=== PATIENT | female | born 1985 | race Caucasian/White ===

== ENCOUNTER 2017-07-01 17:32 | Emergency (ER) ==
[2017-07-01 17:42] VITALS: BP 138/82; TEMP 98.2; BMI 37.1
[2017-07-01] MEDS ORDERED: LIDOCAINE HCL 1% SDV SUBCUT STA (17:51)
[2017-07-01] MEDS ORDERED: DILAUDID 1 MG/ML SYRINGE ONE (18:06)
[2017-07-01] MEDS ORDERED: EMLA CREAM TP ONE (18:25)
--- NOTE | 2017-07-01 18:36 | ED.PDOC ---
General ED Provider: Dr. AMBROSIO LANCASTER Chief Complaint: Rectal Pain Stated Complaint: rectal pain Time Seen by Physician: 17:34 (external hemorroid very tender ) Mode of Arrival: Walk-In Information Source: Patient Exam Limitations: No limitations Referred to ED by: Other (36 weeks ) Nursing and Triage Documentation Reviewed and Agree: Yes (1 day in duration) GI Complaint Exam - Rectal Complaint/Exam Patient Complains of: Reports: Rectal pain Onset/Duration: 1 day Symptoms Are: Still present Timing: Constant Episodes Lasting: Hours Initial Severity: Severe Current Severity: Severe Location: Reports: Rectal Character: Reports: Burning, Pressure Aggravating: Reports: Bowel movement, Sitting, Walking, Exertion Alleviating: Reports: None Associated Signs and Symptoms: Denies: Rectal bleeding, Blood-streaked stool, Black tarry stool, Bright red blood w/ stool (protruding 1 cm hemorrhoid ), Blood without stool Related History: Reports: Hemorrhoids Related Surgical History: Reports: None Rectal Exam: Present: External hemorrhoids, Tenderness Differential Diagnoses: Hemorrhoids Review of Systems - Review Of Systems Constitutional: Reports: No symptoms Eyes: Reports: No symptoms Ears, Nose, Mouth, Throat: Reports: No symptoms Respiratory: Reports: No symptoms Cardiac: Reports: No symptoms GI: Reports: Other (rectal pain external hemorroid ) : Reports: No symptoms Musculoskeletal: Reports: No symptoms Skin: Reports: No symptoms Neurological: Reports: No symptoms Endocrine: Reports: No symptoms Hematologic/Lymphatic: Reports: No symptoms All Other Systems: Reviewed and Negative Past Medical History - Past Medical History Previously Healthy: Yes Endocrine: Reports: None Cardiovascular: Reports: None Respiratory: Reports: None Hematological: Reports: None Gastrointestinal: Reports: None Genitourinary: Reports: None Neuro/Psych: Reports: None Musculoskeletal: Reports: None Cancer: Reports: None Last Menstrual Period: 36 weeks now - Surgical History General Surgical History: Reports: None - Family History Family History: Reports: None - Social History Smoking Status: Current every day smoker, Light tobacco smoker Hx Substance Use: No Alcohol Screening: None Physical Exam - Physical Exam Appearance: Well-appearing (external hemorrhoid noted please see photes before anfter procedure this hemorrhois was very inflammed and thrombosed ), No pain distress, Well-nourished Eyes: JOSE CRUZ, EOMI, Conjunctiva clear ENT: Ears normal, Nose normal, Oropharynx normal Respiratory: Airway patent, Breath sounds clear, Breath sounds equal, Respirations nonlabored Cardiovascular: RRR, Pulses normal, No rub, No murmur GI/: Soft, Nontender, No masses, Bowel sounds normal, No Organomegaly Musculoskeletal: Normal strength, ROM intact, No edema, No calf tenderness Skin: Warm, Dry, Normal color Neurological: Sensation intact, Motor intact, Reflexes intact, Cranial nerves intact, Alert, Oriented Psychiatric: Affect appropriate, Mood appropriate Procedures - Incision and Drainage Site: rectal . Instrument Used: 10 Blade I & D Procedure: Yes: Betadine Prep, Sterile dressing applied Lidocaine Used: Yes (2ml plain) Type of Drainage: Present: Blood (an inflammed thrombosed external hemoorhoid was noted this hemorrhoid was isoltaed and removed by carefull excision the margins of the wound was suture with 3 prolene suture 2 sutures placed photos before and after submitted . pt's was present at all times along with maureen) Critical Care Note - Critical Care Note Total Time (mins): 0 Course - Course Orders, Labs, Meds: Orders Category Date Time Status Hydromorphone HCl [Dilaudid 1 mg/ml Syringe] MEDS 07/01/17 18:06 Discontinued 1 mg .ROUTE .STK-MED ONE Lidocaine HCl/Pf [Lidocaine HCl 1% Sdv] MEDS 07/01/17 17:51 Stat 5 ml SUBCUT ONCE STA Lidocaine/Prilocaine [Emla Cream] MEDS 07/01/17 18:25 Discontinued 2 applic TP .STK-MED ONE Medications Discontinued Medications Generic Name Dose Route Start Last Admin Trade Name Freq PRN Reason Stop Dose Admin Lidocaine HCl 5 ml 07/01/17 17:51 Lidocaine Hcl 1% Sdv SUBCUT 07/01/17 17:52 ONCE STA Vital Signs: Temp Pulse Resp BP Pulse Ox 07/01/17 17:33 98.2 F 108 H 20 138/82 98 Departure - Departure Time of Disposition: 18:40 Disposition: HOME SELF-CARE Discharge Problem: Rectal pain, External hemorrhoid, thrombosed Instructions: Hemorrhoids (ED), Wound Healing and Your Diet (ED), Acute Wound Care (ED) Condition: Good Pt referred to PMD for follow-up: Yes Additional Instructions: Please call your Family Physician as soon as possible to schedule a follow-up appointment. Allergies/Adverse Reactions: Allergies No Known Allergies Allergy (Unverified 07/01/17 17:41) Home Medications: Ambulatory Orders Pnv No.122/Iron/Folic Acid [ Multi Tablet] 1 each PO DAILY 07/01/17 Disposition Discussed With: Patient
[2017-07-01] MEDS ORDERED: NORCO 10-325 PO STA (18:43)
== END 2017-07-01 19:10 | disposition home or self-care (01) ==
LOC: ED 17:32
DX: K64.5 Perianal venous thrombosis (principal); K62.89 Other specified diseases of anus and rectum; Z33.1 Pregnant state, incidental; F17.210 Nicotine dependence, cigarettes, uncomplicated
CPT/HCPCS: 99284

== ENCOUNTER 2017-07-06 22:50 | Emergency (ER) ==
[2017-07-06 22:51] VITALS: BMI 37.1
[2017-07-06 23:00] VITALS: BP 138/91; TEMP 98.9
[2017-07-06] MEDS: ANUCORT-HC RC STA (23:49)
[2017-07-06] MEDS: EMLA CREAM TP STA (23:49)
--- NOTE | 2017-07-06 23:53 | ED.PDOC ---
General ED Provider: Dr. IVONNE HERMAN Chief Complaint: Rectal Pain Stated Complaint: Pateint is 37 weeks who comes to the ER with hemorroidal pain. She was seen last week in this ER had some of her hemorroids removed and sutures placed. She started having severe pain again yesterday worse with bowel movement or sitting. Tried to follow up with OBGYN but was told to return to this ER where she had it done. Time Seen by Physician: 23:00 Mode of Arrival: Walk-In Information Source: Patient, Family Exam Limitations: No limitations Nursing and Triage Documentation Reviewed and Agree: Yes GI Complaint Exam - Rectal Complaint/Exam Patient Complains of: Reports: Rectal pain, Rectal bleeding Onset/Duration: 1 week Symptoms Are: Still present Timing: Constant Initial Severity: Severe Current Severity: Severe Location: Reports: Rectal Character: Reports: Dull Aggravating: Reports: None Alleviating: Reports: None Associated Signs and Symptoms: Reports: Rectal bleeding. Denies: Blood- streaked stool, Black tarry stool, Bright red blood w/ stool, Blood without stool Related History: Reports: Hemorrhoids Rectal Exam: Present: External hemorrhoids (at 12 o'clock position. Sutrues intact at the 7 and 9 o'clock position) Review of Systems - Review Of Systems Constitutional: Reports: No symptoms Eyes: Reports: No symptoms Ears, Nose, Mouth, Throat: Reports: No symptoms Respiratory: Reports: No symptoms Cardiac: Reports: No symptoms : Reports: No symptoms Musculoskeletal: Reports: No symptoms Skin: Reports: No symptoms Neurological: Reports: Anxiety Endocrine: Reports: No symptoms Hematologic/Lymphatic: Reports: No symptoms All Other Systems: Reviewed and Negative Past Medical History - Past Medical History Previously Healthy: Yes Endocrine: Reports: None Cardiovascular: Reports: None Respiratory: Reports: None Hematological: Reports: None Gastrointestinal: Reports: None Genitourinary: Reports: None Neuro/Psych: Reports: None Musculoskeletal: Reports: None Cancer: Reports: None Last Menstrual Period: 10/31/16 - Surgical History General Surgical History: Reports: Other (Hemorroidectomy last week ) - Family History Family History: Reports: None - Social History Smoking Status: Current every day smoker, Light tobacco smoker Hx Substance Use: No Alcohol Screening: None - Immunizations Tetanus Shot up to Date: Yes Physical Exam - Physical Exam Appearance: Well-nourished, Obese Pain Distress: Severe Eyes: JOSE CRUZ, EOMI, Conjunctiva clear Neck: Supple Respiratory: Airway patent, Breath sounds clear, Breath sounds equal, Respirations nonlabored Cardiovascular: Pulses normal, No rub, No murmur, Tachycardia GI/: Soft (Gravid) Musculoskeletal: Normal strength, ROM intact, No edema, No calf tenderness Skin: Warm, Dry, Normal color Neurological: Sensation intact, Motor intact, Alert, Oriented Psychiatric: Anxious Critical Care Note - Critical Care Note Total Time (mins): 0 Course - Course Orders, Labs, Meds: Orders Category Date Time Status Hydrocortisone Acetate [Anucort-Hc] MEDS 07/06/17 23:43 Discontinued 1 supp RC ONCE STA Lidocaine/Prilocaine [Emla Cream] MEDS 07/06/17 23:45 Discontinued 1 applic TP ONCE STA Medications Discontinued Medications Generic Name Dose Route Start Last Admin Trade Name Freq PRN Reason Stop Dose Admin Hydrocortisone Acetate 1 supp 07/06/17 23:43 Anucort-Hc RC 07/06/17 23:44 ONCE STA Lidocaine/Prilocaine 1 applic 07/06/17 23:45 Emla Cream TP 07/06/17 23:46 ONCE STA Vital Signs: Temp Pulse Resp BP Pulse Ox 07/06/17 22:51 98.9 F 123 H 20 138/91 H 98 Departure - Departure Time of Disposition: 23:57 Disposition: HOME SELF-CARE Discharge Problem: External hemorrhoid, thrombosed Instructions: Hemorrhoids (ED) Condition: Fair Pt referred to PMD for follow-up: Yes Additional Instructions: Use Anusol Three to 4 times a day Follow up with OBGYN in 1-2 days Prescriptions: Hydrocortisone Acetate [Anusol-Hc] 25 mg RC QID PRN #20 supp.rect PRN Reason: Hemorroids Oxycodone-Acetaminophen 5-325 [Percocet 5-325] 1 tab PO Q4H #20 tablet Allergies/Adverse Reactions: Allergies No Known Allergies Allergy (Verified 07/06/17 22:59) Home Medications: Ambulatory Orders Pnv No.122/Iron/Folic Acid [ Multi Tablet] 1 each PO DAILY 07/01/17 Hydrocortisone Acetate [Anusol-Hc] 25 mg RC QID PRN #20 supp.rect 07/07/17 Oxycodone-Acetaminophen 5-325 [Percocet 5-325] 1 tab PO Q4H #20 tablet 07/07/17 Disposition Discussed With: Patient, Family
[2017-07-07] MEDS ORDERED: ANUCORT-HC RC ONE (06:56)
[2017-07-07] MEDS ORDERED: EMLA CREAM TP ONE (06:56)
== END 2017-07-07 00:05 | disposition home or self-care (01) ==
LOC: ED 22:50
DX: K64.5 Perianal venous thrombosis (principal); Z33.1 Pregnant state, incidental; Z98.890 Other specified postprocedural states; F17.210 Nicotine dependence, cigarettes, uncomplicated
CPT/HCPCS: 99283

== ENCOUNTER 2018-11-18 03:53 | Emergency (ER) | payer MEDICAID, OTHER ==
[2018-11-18 03:57] VITALS: BP 144/84; TEMP 98; BMI 31.1
--- NOTE | 2018-11-18 04:15 | ED.PDOC ---
General ED Provider: Dr. IMAN HERNANDEZ-ER Chief Complaint: Tooth Problem Stated Complaint: i have a bad tooth Time Seen by Physician: 04:00 Mode of Arrival: Walk-In Information Source: Patient Exam Limitations: No limitations Nursing and Triage Documentation Reviewed and Agree: Yes Does patient meet sepsis criteria?: No System Inflammatory Response Syndrome: Not Applicable Sepsis Protocol: For patient's 13 years and over: Temp is 96.8 and below OR 101 and greater Pulse >90 BPM Resp >20/minute Acutely Altered Mental Status Are patient's symptoms suggestive of a new infection, such as: -Pneumonia -Skin, Soft Tissue -Endocarditis -UTI -Bone, Joint Infection -Implantable Device -Acute Abdominal Infection -Wound Infection -Meningitis -Blood Stream Catheter Infection -Unknown EENT Complaint Exam - Dental/Oral Complaint/Exam Mechanism of Injury: No known trauma Onset/Duration: 2 days Symptoms Are: Still present Timing: Constant Initial Severity: Mild Current Severity: Moderate Character: Reports: Dull, Aching, Throbbing Aggravating: Reports: Heat, Cold, Chewing Associated Signs and Symptoms: Reports: Swelling Cardiac Risk Factors: Reports: None Dental/Oral Surgical History: Reports: None Tooth Findings: Present: Percussion tenderness, Gross decay, Gross caries Cervical Lymphadenopathy Present: No Facial Swelling Present: No Bleeding Present: No Septal Hematoma: No Foreign Body Present: No Dysphagia Present: No Drooling Present: No Asymmetrical Tonsillar Swelling Present: No Uvula Midline: Yes Caty-tonsillar Fluctuence: No Trismus Present: No Palatal Petechiae Present: No Scarlatinaform Rash Present: No Differential Diagnoses: Dental Abcess, Dental Caries, Odontogenic Pain Review of Systems - Review Of Systems Constitutional: Reports: No symptoms Eyes: Reports: No symptoms Ears, Nose, Mouth, Throat: Reports: Mouth pain Respiratory: Reports: No symptoms Cardiac: Reports: No symptoms GI: Reports: No symptoms : Reports: No symptoms Musculoskeletal: Reports: No symptoms Skin: Reports: No symptoms Neurological: Reports: No symptoms Endocrine: Reports: No symptoms Hematologic/Lymphatic: Reports: No symptoms All Other Systems: Reviewed and Negative Past Medical History - Past Medical History Previously Healthy: Yes Endocrine: Reports: None Cardiovascular: Reports: None Respiratory: Reports: None Hematological: Reports: None Gastrointestinal: Reports: None Genitourinary: Reports: None Neuro/Psych: Reports: None Musculoskeletal: Reports: None Cancer: Reports: None Last Menstrual Period: current - Surgical History General Surgical History: Reports: Other (Hemorroidectomy last week ) - Family History Family History: Reports: None - Social History Smoking Status: Current every day smoker, Light tobacco smoker Hx Substance Use: No Alcohol Screening: None - Immunizations Tetanus Shot up to Date: Yes Physical Exam - Physical Exam Appearance: Well-appearing, No pain distress, Well-nourished Pain Distress: Moderate Eyes: JOSE CRUZ, EOMI, Conjunctiva clear ENT: Ears normal, Nose normal, Oropharynx normal (exam does confirm left lower incisor tender to palpation) Neck: Supple Respiratory: Airway patent, Breath sounds clear, Breath sounds equal, Respirations nonlabored Cardiovascular: RRR, Pulses normal, No rub, No murmur GI/: Soft, Nontender, No masses, Bowel sounds normal, No Organomegaly Musculoskeletal: Normal strength, ROM intact, No edema, No calf tenderness Skin: Warm, Dry, Normal color Neurological: Sensation intact, Motor intact, Reflexes intact, Cranial nerves intact, Alert, Oriented Psychiatric: Affect appropriate, Mood appropriate Critical Care Note - Critical Care Note Total Time (mins): 0 Course - Course Vital Signs: Temp Pulse Resp BP Pulse Ox 11/18/18 03:53 98 F 88 18 144/84 H 99 Departure - Departure Time of Disposition: 04:15 Disposition: HOME SELF-CARE Discharge Problem: Toothache Instructions: Dental Abscess (ED) Condition: Good Pt referred to PMD for follow-up: Yes IPMP verified?: No Additional Instructions: do not breastfeed on these meds---"pump and dump"----pen v k 500mg bid x 7 days- --norco 7.5 q 4hrs prn pain #12---see dentist varinder Allergies/Adverse Reactions: Allergies No Known Allergies Allergy (Verified 11/18/18 03:57) Home Medications: Ambulatory Orders 1 [No Reported Medications] 11/18/18 Disposition Discussed With: Patient
== END 2018-11-18 04:30 | disposition home or self-care (01) ==
LOC: ED 03:53
DX: K08.89 Other specified disorders of teeth and supporting structures (principal); K02.7 Dental root caries; F17.210 Nicotine dependence, cigarettes, uncomplicated
CPT/HCPCS: 99282

== ENCOUNTER 2018-11-25 21:45 | Emergency (ER) ==
--- NOTE | 2018-11-25 21:52 | ED.PDOC ---
General ED Provider: Dr. ABDULKADIR LEVIN Chief Complaint: Tooth Problem Stated Complaint: dental pain in lower left bank Time Seen by Physician: 22:10 Mode of Arrival: Walk-In Information Source: Patient Exam Limitations: No limitations Nursing and Triage Documentation Reviewed and Agree: Yes Does patient meet sepsis criteria?: No System Inflammatory Response Syndrome: Not Applicable Sepsis Protocol: For patient's 13 years and over: Temp is 96.8 and below OR 101 and greater Pulse >90 BPM Resp >20/minute Acutely Altered Mental Status Are patient's symptoms suggestive of a new infection, such as: -Pneumonia -Skin, Soft Tissue -Endocarditis -UTI -Bone, Joint Infection -Implantable Device -Acute Abdominal Infection -Wound Infection -Meningitis -Blood Stream Catheter Infection -Unknown EENT Complaint Exam - Dental/Oral Complaint/Exam Mechanism of Injury: No known trauma Onset/Duration: few days Symptoms Are: Still present Timing: Intermittent Initial Severity: Moderate Current Severity: Moderate Character: Reports: Aching Aggravating: Reports: Chewing Alleviating: Reports: None Dental/Oral Surgical History: Reports: None Tooth Findings: Present: Percussion tenderness, Cellulitis Cervical Lymphadenopathy Present: Yes Facial Swelling Present: No Bleeding Present: No Septal Hematoma: No Dysphagia Present: No Drooling Present: No Uvula Midline: Yes Caty-tonsillar Fluctuence: No Trismus Present: No Palatal Petechiae Present: No Scarlatinaform Rash Present: No Differential Diagnoses: Dental Abcess, Dental Caries, Gingivitis Review of Systems - Review Of Systems Constitutional: Reports: Other Eyes: Reports: No symptoms, Glasses Respiratory: Reports: No symptoms Cardiac: Reports: No symptoms GI: Reports: No symptoms : Reports: No symptoms Musculoskeletal: Reports: No symptoms Skin: Reports: No symptoms Neurological: Reports: No symptoms Endocrine: Reports: No symptoms Hematologic/Lymphatic: Reports: No symptoms All Other Systems: Reviewed and Negative Past Medical History - Past Medical History Previously Healthy: Yes Endocrine: Reports: None Cardiovascular: Reports: None Respiratory: Reports: None Hematological: Reports: None Gastrointestinal: Reports: None Genitourinary: Reports: None Neuro/Psych: Reports: None Musculoskeletal: Reports: None Cancer: Reports: None - Surgical History General Surgical History: Reports: Other (Hemorroidectomy last week ) - Family History Family History: Reports: None - Social History Smoking Status: Current every day smoker, Light tobacco smoker Hx Substance Use: No Alcohol Screening: None Physical Exam - Physical Exam Appearance: Well-appearing Ill-appearing: Mild Pain Distress: Moderate Eyes: JOSE CRUZ ENT: Ears normal Neck: Supple Respiratory: Airway patent Cardiovascular: RRR GI/: Tender Musculoskeletal: Normal strength Neurological: Sensation intact Psychiatric: Affect appropriate Critical Care Note - Critical Care Note Total Time (mins): 0 Departure - Departure Time of Disposition: 01:00 Disposition: HOME SELF-CARE Discharge Problem: Pain, dental Instructions: Toothache (ED) Condition: Good Pt referred to PMD for follow-up: Yes (referred to appropriate dental clinic for a ssoner apoinmtment at am.) IPMP verified?: No Additional Instructions: Clindamycin 300 mgfollow with [facility] number given at am for sooner dental visit, Take meds as orescribed including a break in breast feed to take antibiotic and pain meds until seen.Clindamycin Rx 300 mg tab qid x 7 days.NO BREAST FEED.For distressing pain take NORCO 10/325 tab- one tab every 4-6 hours for 2 days total 8 tab. Allergies/Adverse Reactions: Allergies No Known Allergies Allergy (Verified 11/25/18 21:57) Home Medications: Ambulatory Orders 1 [No Reported Medications] 11/18/18 Disposition Discussed With: Patient
[2018-11-25 21:57] VITALS: BP 125/82; TEMP 99.3; BMI 33.7
[2018-11-25] MEDS ORDERED: TYLENOL LIQUID 650 MG/20.3 ML PO STA (22:27)
[2018-11-25] MEDS ORDERED: PENICILLIN VK TAB PO STA (22:29)
== END 2018-11-25 22:45 | disposition home or self-care (01) ==
LOC: ED 21:45
DX: K08.89 Other specified disorders of teeth and supporting structures (principal); F17.210 Nicotine dependence, cigarettes, uncomplicated
CPT/HCPCS: 99282

== ENCOUNTER 2018-12-23 00:16 | Emergency (ER) ==
[2018-12-23 00:25] VITALS: BP 127/81; TEMP 99.5; BMI 33.3
--- NOTE | 2018-12-23 00:37 | ED.PDOC ---
General ED Provider: Dr. IVONNE HERMAN Chief Complaint: Tooth Problem Stated Complaint: Patient is a 33 year old female who comes to the ER with left lower molar tooth ache. States she has an Apt with Dr Shannon 01/04/19 has been on tylenol and motrin without much relief. Time Seen by Physician: 00:35 Mode of Arrival: Walk-In Information Source: Patient Exam Limitations: No limitations Nursing and Triage Documentation Reviewed and Agree: Yes Does patient meet sepsis criteria?: No System Inflammatory Response Syndrome: Not Applicable Sepsis Protocol: For patient's 13 years and over: Temp is 96.8 and below OR 101 and greater Pulse >90 BPM Resp >20/minute Acutely Altered Mental Status Are patient's symptoms suggestive of a new infection, such as: -Pneumonia -Skin, Soft Tissue -Endocarditis -UTI -Bone, Joint Infection -Implantable Device -Acute Abdominal Infection -Wound Infection -Meningitis -Blood Stream Catheter Infection -Unknown EENT Complaint Exam - Dental/Oral Complaint/Exam Mechanism of Injury: No known trauma Onset/Duration: 1 day Symptoms Are: Still present Timing: Constant Initial Severity: Moderate Current Severity: Severe Location: Left lower molar Character: Reports: Aching, Throbbing Aggravating: Reports: Heat, Cold, Chewing Associated Signs and Symptoms: Reports: Swelling, Discharge Related History: Reports: Similar episode Cardiac Risk Factors: Reports: None Dental/Oral Surgical History: Reports: None Tooth Findings: Present: Gross decay, Dental fracture, Abcess Cervical Lymphadenopathy Present: No Facial Swelling Present: No Bleeding Present: No Oropharynx Findings: Absent: Clots, Active bleeding Septal Hematoma: No Foreign Body Present: No Dysphagia Present: No Drooling Present: No Asymmetrical Tonsillar Swelling Present: No Uvula Midline: No Caty-tonsillar Fluctuence: No Trismus Present: No Palatal Petechiae Present: No Scarlatinaform Rash Present: No Teeth Picture: 1 - pain and tenderness to percussion Differential Diagnoses: Dental Abcess, Dental Caries Review of Systems - Review Of Systems Constitutional: Reports: No symptoms Eyes: Reports: No symptoms Ears, Nose, Mouth, Throat: Reports: Mouth pain Respiratory: Reports: No symptoms Cardiac: Reports: No symptoms GI: Reports: No symptoms : Reports: No symptoms Musculoskeletal: Reports: No symptoms Skin: Reports: No symptoms Neurological: Reports: No symptoms Endocrine: Reports: No symptoms Hematologic/Lymphatic: Reports: No symptoms All Other Systems: Reviewed and Negative Past Medical History - Past Medical History Previously Healthy: Yes Endocrine: Reports: None Cardiovascular: Reports: None Respiratory: Reports: None Hematological: Reports: None Gastrointestinal: Reports: None Genitourinary: Reports: None Neuro/Psych: Reports: None Musculoskeletal: Reports: None Cancer: Reports: None Last Menstrual Period: PRESENTLY - Surgical History General Surgical History: Reports: Other (Hemorroidectomy last week ) - Family History Family History: Reports: None - Social History Smoking Status: Current every day smoker, Heavy tobacco smoker Hx Substance Use: No Alcohol Screening: None - Immunizations Tetanus Shot up to Date: Yes Physical Exam - Physical Exam Appearance: Ill-appearing, Obese Pain Distress: Severe Eyes: JOSE CRUZ ENT: Ears normal, Nose normal, Oropharynx normal Neck: Supple (Enlarged lyphm node) Respiratory: Airway patent, Breath sounds clear, Breath sounds equal, Respirations nonlabored Musculoskeletal: Normal strength, ROM intact, No edema, No calf tenderness Skin: Warm, Dry, Normal color Neurological: Alert, Oriented Psychiatric: Anxious Critical Care Note - Critical Care Note Total Time (mins): 0 Course - Course Vital Signs: Temp Pulse Resp BP Pulse Ox 12/23/18 00:18 99.5 F 92 H 18 127/81 98 Departure - Departure Time of Disposition: 00:51 Disposition: HOME SELF-CARE Discharge Problem: Dental caries Instructions: Dental Abscess (ED), Toothache (ED) Condition: Fair Pt referred to PMD for follow-up: Yes IPMP verified?: No Additional Instructions: take antibiotics as prescribed Follow up with PCP in 3 days Prescriptions: Hydrocodone Bit/Acetaminophen [Lueders 5-325] 1 each PO Q6HR PRN #15 tablet PRN Reason: severe pain Amoxicillin [Amoxil] 500 mg PO TID #30 capsule Ibuprofen [Motrin] 600 mg PO Q6H PRN #30 tablet PRN Reason: Analgesia Allergies/Adverse Reactions: Allergies No Known Allergies Allergy (Verified 12/23/18 00:25) Home Medications: Ambulatory Orders Amoxicillin [Amoxil] 500 mg PO TID #30 capsule 12/23/18 Hydrocodone Bit/Acetaminophen [Lueders 5-325] 1 each PO Q6HR PRN #15 tablet Ibuprofen [Motrin] 600 mg PO Q6H PRN #30 tablet 12/23/18 Medroxyprogesterone Acetate [Depo-Provera] 150 mg IM DIRECTED 12/23/18 Disposition Discussed With: Patient
[2018-12-23] MEDS ORDERED: AMOXIL PO STA (00:50)
== END 2018-12-23 01:03 | disposition home or self-care (01) ==
LOC: ED 00:16
DX: K08.89 Other specified disorders of teeth and supporting structures (principal); K02.7 Dental root caries; K04.7 Periapical abscess without sinus; S02.5XXA Fracture of tooth (traumatic), initial encounter for closed fracture; F17.210 Nicotine dependence, cigarettes, uncomplicated
CPT/HCPCS: 99282

== ENCOUNTER 2019-01-03 23:43 | Emergency (ER) ==
--- NOTE | 2019-01-04 00:02 | ED.PDOC ---
General ED Provider: Dr. IVONNE HERMAN Chief Complaint: Tooth Problem Stated Complaint: Patient statest that her filling fell off two months ago from the left molar. Since then it has been painful. Has neen taking Motrin without relief. Has been on Amoxil which she just complete 2 days ago. states that the pain is severe. Time Seen by Physician: 00:04 Mode of Arrival: Walk-In Information Source: Patient Exam Limitations: No limitations Nursing and Triage Documentation Reviewed and Agree: Yes Does patient meet sepsis criteria?: No System Inflammatory Response Syndrome: Not Applicable Sepsis Protocol: For patient's 13 years and over: Temp is 96.8 and below OR 101 and greater Pulse >90 BPM Resp >20/minute Acutely Altered Mental Status Are patient's symptoms suggestive of a new infection, such as: -Pneumonia -Skin, Soft Tissue -Endocarditis -UTI -Bone, Joint Infection -Implantable Device -Acute Abdominal Infection -Wound Infection -Meningitis -Blood Stream Catheter Infection -Unknown EENT Complaint Exam - Dental/Oral Complaint/Exam Mechanism of Injury: No known trauma Onset/Duration: 2 months Symptoms Are: Still present Timing: Constant Initial Severity: Moderate Current Severity: Severe Location: Left lower molar Character: Reports: Aching, Throbbing Aggravating: Reports: Heat, Cold, Chewing Alleviating: Reports: None Associated Signs and Symptoms: Denies: Swelling, Discharge, Fever, Foul odor, Foul taste in mouth Dental/Oral Surgical History: Reports: Third Molar Extractions Tooth Findings: Present: Percussion tenderness Cervical Lymphadenopathy Present: No Facial Swelling Present: Yes Bleeding Present: No Oropharynx Findings: Absent: Clots, Active bleeding Septal Hematoma: No Foreign Body Present: No Dysphagia Present: No Drooling Present: No Asymmetrical Tonsillar Swelling Present: No Uvula Midline: Yes Caty-tonsillar Fluctuence: No Trismus Present: No Palatal Petechiae Present: No Scarlatinaform Rash Present: No Lesions: Absent: Lip, Gums, Tongue, Buccal Mucosa, Pharynx Exanthem: Absent: Lip, Gums, Tongue, Buccal Mucosa, Pharynx Vesicles: Absent: Lip, Gums, Tongue, Buccal Mucosa, Pharynx Teeth Picture: 1 - tenderness 2 - extracted Differential Diagnoses: Dental Abcess, Dental Caries, Fractured Tooth, Gingivitis, Periodontic Disease, Mastoiditis Review of Systems - Review Of Systems Constitutional: Reports: No symptoms Eyes: Reports: No symptoms Ears, Nose, Mouth, Throat: Reports: Mouth pain, Mouth swelling Respiratory: Reports: No symptoms Cardiac: Reports: No symptoms GI: Reports: No symptoms : Reports: No symptoms Musculoskeletal: Reports: No symptoms Skin: Reports: No symptoms Neurological: Reports: No symptoms Endocrine: Reports: No symptoms Hematologic/Lymphatic: Reports: No symptoms All Other Systems: Reviewed and Negative Past Medical History - Past Medical History Previously Healthy: Yes Endocrine: Reports: None Cardiovascular: Reports: None Respiratory: Reports: None Hematological: Reports: None Gastrointestinal: Reports: None Genitourinary: Reports: None Neuro/Psych: Reports: None Musculoskeletal: Reports: None Cancer: Reports: None - Surgical History General Surgical History: Reports: Other (Hemorroidectomy last week ) - Family History Family History: Reports: None - Social History Smoking Status: Current every day smoker, Heavy tobacco smoker Hx Substance Use: No Alcohol Screening: None Physical Exam - Physical Exam Appearance: Ill-appearing Ill-appearing: Mild Pain Distress: Severe Eyes: JOSE CRUZ, EOMI, Conjunctiva clear ENT: Ears normal, Nose normal, Oropharynx normal Neck: Supple Respiratory: Airway patent Cardiovascular: RRR, Pulses normal, No rub, No murmur GI/: Soft, Nontender, No masses, Bowel sounds normal, No Organomegaly Musculoskeletal: Normal strength, ROM intact, No edema, No calf tenderness Skin: Warm, Dry, Normal color Neurological: Sensation intact, Motor intact, Reflexes intact, Cranial nerves intact, Alert, Oriented Psychiatric: Anxious Re-Evaluation - Re-Evaluation Status: Improved Vital Signs Stable: Yes Critical Care Note - Critical Care Note Total Time (mins): 0 Departure - Departure Time of Disposition: 00:30 Disposition: HOME SELF-CARE Discharge Problem: Pain, dental Instructions: Toothache (ED) Condition: Stable Pt referred to PMD for follow-up: Yes IPMP verified?: No Additional Instructions: Take medications as prescribed Follow up with Dentist next week Prescriptions: Clindamycin HCl 300 mg PO TID #30 capsule Hydrocodone/Acetaminophen [Hydrocodon-Acetaminoph 7.5-325] 1 each PO TID PRN # 14 tablet PRN Reason: dental pain Allergies/Adverse Reactions: Allergies No Known Allergies Allergy (Verified 01/04/19 00:04) Home Medications: Ambulatory Orders Ibuprofen [Motrin] 600 mg PO Q6H PRN #30 tablet 12/23/18 Medroxyprogesterone Acetate [Depo-Provera] 150 mg IM DIRECTED 12/23/18 Clindamycin HCl 300 mg PO TID #30 capsule 01/04/19 Hydrocodone/Acetaminophen [Hydrocodon-Acetaminoph 7.5-325] 1 each PO TID PRN # 14 tablet 01/04/19
[2019-01-04 00:04] VITALS: BP 147/87; TEMP 99.8; BMI 32.9
[2019-01-04] MEDS ORDERED: CLEOCIN PO STA (00:08)
[2019-01-04] MEDS ORDERED: NORCO 7.5-325 PO STA (00:08)
== END 2019-01-04 00:50 | disposition home or self-care (01) ==
LOC: ED 23:43
DX: K08.89 Other specified disorders of teeth and supporting structures (principal); F17.210 Nicotine dependence, cigarettes, uncomplicated
CPT/HCPCS: 99282

== ENCOUNTER 2019-01-05 17:00 | Emergency (ER) ==
[2019-01-05 17:01] VITALS: BMI 32.9
[2019-01-05 17:03] VITALS: BP 124/76; TEMP 98.6
--- NOTE | 2019-01-05 18:01 | ED.PDOC ---
General ED Provider: Dr. IMAN WISE Chief Complaint: Tooth Problem Stated Complaint: Throat and lt molar pain extending into subtonsillar region and anterior lateral cervical region . On clindamycin and [place] 7.5(not relieving pain ). Time Seen by Physician: 17:50 Mode of Arrival: Walk-In Information Source: Patient Exam Limitations: No limitations Seen Within Last 72 Hours for Same Complaint By: ED Nursing and Triage Documentation Reviewed and Agree: Yes Does patient meet sepsis criteria?: No If yes, has appropriate treatment been initiated?: No System Inflammatory Response Syndrome: Not Applicable Sepsis Protocol: For patient's 13 years and over: Temp is 96.8 and below OR 101 and greater Pulse >90 BPM Resp >20/minute Acutely Altered Mental Status Are patient's symptoms suggestive of a new infection, such as: -Pneumonia -Skin, Soft Tissue -Endocarditis -UTI -Bone, Joint Infection -Implantable Device -Acute Abdominal Infection -Wound Infection -Meningitis -Blood Stream Catheter Infection -Unknown EENT Complaint Exam - Dental/Oral Complaint/Exam Mechanism of Injury: No known trauma Onset/Duration: 1 week with worsenting of previous pain Symptoms Are: Worse Timing: Constant Initial Severity: Moderate Current Severity: Severe Location: LT Peritonsillar region, sub tonsillar region and post molar(filling out Character: Reports: Aching, Throbbing Aggravating: Reports: Chewing Alleviating: Reports: None Associated Signs and Symptoms: Reports: Swelling Related History: Reports: Similar episode Cardiac Risk Factors: Reports: None Dental/Oral Surgical History: Reports: None Tooth Findings: Present: Percussion tenderness, Abcess, Cellulitis (petechiae of gingival tissue posteriorly) Cervical Lymphadenopathy Present: Yes Facial Swelling Present: Yes (Lt mandibular) Bleeding Present: No Septal Hematoma: No Foreign Body Present: No Dysphagia Present: Yes Drooling Present: No Asymmetrical Tonsillar Swelling Present: No Uvula Midline: Yes Caty-tonsillar Fluctuence: No Trismus Present: No Palatal Petechiae Present: Yes Scarlatinaform Rash Present: No Lesions: Present: Gums, Buccal Mucosa, Pharynx Differential Diagnoses: Dental Abcess, Gingivitis, Odontogenic Pain, Peritonsillar Abcess, Pharyngitis, Tonsillitis Review of Systems - Review Of Systems Constitutional: Reports: No symptoms, Malaise Eyes: Reports: No symptoms Ears, Nose, Mouth, Throat: Reports: No symptoms, Mouth pain Respiratory: Reports: No symptoms Cardiac: Reports: No symptoms GI: Reports: No symptoms : Reports: No symptoms Musculoskeletal: Reports: No symptoms Skin: Reports: No symptoms Neurological: Reports: No symptoms Endocrine: Reports: No symptoms Hematologic/Lymphatic: Reports: No symptoms All Other Systems: Reviewed and Negative Past Medical History - Past Medical History Previously Healthy: Yes Endocrine: Reports: None Cardiovascular: Reports: None Respiratory: Reports: None Hematological: Reports: None Gastrointestinal: Reports: None Genitourinary: Reports: None Neuro/Psych: Reports: None Musculoskeletal: Reports: None Cancer: Reports: None Last Menstrual Period: [id number] - Surgical History General Surgical History: Reports: Other (Hemorroidectomy last week ) - Family History Family History: Reports: None - Social History Smoking Status: Current every day smoker, Heavy tobacco smoker Hx Substance Use: No Alcohol Screening: None - Immunizations Tetanus Shot up to Date: No Physical Exam - Physical Exam Appearance: Well-appearing Ill-appearing: None Pain Distress: Severe Eyes: JOSE CRUZ, EOMI, Conjunctiva clear ENT: Ears normal, Nose normal, Oropharynx normal Neck: Supple (pos lt cervical lymphadenopathy) Respiratory: Airway patent, Breath sounds clear, Breath sounds equal, Respirations nonlabored Cardiovascular: RRR, Pulses normal, No rub, No murmur GI/: Soft, Nontender, No masses, Bowel sounds normal, No Organomegaly Musculoskeletal: Normal strength, ROM intact, No edema, No calf tenderness Skin: Warm Neurological: Sensation intact, Motor intact, Reflexes intact, Cranial nerves intact, Alert, Oriented Psychiatric: Affect appropriate, Mood appropriate Interpretation - Radiology Interpretation Exam Interpreted: CT Scan (Lt Mandibular 1st molar /paranasal sinusitis, cervical lymphadenopathy) Critical Care Note - Critical Care Note Total Time (mins): 60 Course - Course Hematology/Chemistry: 01/05/19 18:16 01/05/19 18:16 Vital Signs: Temp Pulse Resp BP Pulse Ox 01/05/19 17:01 98.6 F 88 18 124/76 98 Departure - Departure Time of Disposition: 20:25 Disposition: HOME SELF-CARE Discharge Problem: Toothache, Dental abscess, Cervical lymphadenopathy, Paranasal sinus disease Instructions: Dental Abscess (ED), Toothache (ED) Condition: Fair Pt referred to PMD for follow-up: Yes IPMP verified?: No Additional Instructions: Take Toradol every 6 hrs for relief of jaw pain and swelling Take [place] for pain unrelieved by toradol Keep dental apt next week Prescriptions: Hydrocodone Bit/Acetaminophen [[place] 7.5-325] 1 - 2 each PO Q6HR PRN #20 tablet PRN Reason: Toothache Ketorolac Tromethamine [Toradol] 10 mg PO Q6H #20 tablet Allergies/Adverse Reactions: Allergies No Known Allergies Allergy (Verified 01/05/19 17:03) Home Medications: Ambulatory Orders Clindamycin HCl 300 mg PO TID #30 capsule 01/04/19 Hydrocodone/Acetaminophen [Hydrocodon-Acetaminoph 7.5-325] 1 each PO TID PRN # 14 tablet 01/04/19 Hydrocodone Bit/Acetaminophen [[place] 7.5-325] 1 - 2 each PO Q6HR PRN #20 tablet 01/05/19 Ketorolac Tromethamine [Toradol] 10 mg PO Q6H #20 tablet 01/05/19 Disposition Discussed With: Patient Additional Comments Additional Comments: prolonged ER time due to prolonged time for radiology to interpret CT scan and provide interpertation to reivew with patient .
[2019-01-05] MEDS ORDERED: TORADOL PO STA (19:44)
--- NOTE | 2019-01-05 20:44 | CT ---
EXAM: CT maxillofacial without contrast. HISTORY: Left lower molar tooth pain. PROCEDURE: Contiguous axial CT images of the face and orbits without contrast with coronal and sagit karin reformats. FINDINGS: There is a lucency surrounding the left mandibular first molar suspicious for a tooth absce ss. There are enlarged cervical lymph nodes measuring up to 1 cm in short axis. No discrete fluid c ollection or evidence of soft tissue abscess. There is mucosal thickening in the paranasal sinuses. The orbits are normal in appearance. The bones are intact with no evidence of fracture. The tempor omandibular joints are maintained. Impression: Lucency surrounding the left mandibular first molar, suspicious for a tooth abscess. Cervical lymphadenopathy as described which is probably reactive. Paranasal sinusitis.
== END 2019-01-05 20:34 | disposition home or self-care (01) ==
LOC: ED 17:00
DX: K08.89 Other specified disorders of teeth and supporting structures (principal); K04.7 Periapical abscess without sinus; R59.0 Localized enlarged lymph nodes; J32.9 Chronic sinusitis, unspecified; F17.210 Nicotine dependence, cigarettes, uncomplicated
CPT/HCPCS: 36415; 80053; 84703; 85025; 85651; 87651; 99283